=== PATIENT | female | born 1955 | race African-American/Black ===

== ENCOUNTER 2016-11-28 20:10 | Emergency (ER) | payer OTHER ==
[~2016-11-28] VITALS: Ht 167.6 cm; Wt 90.7 kg
[2016-11-28] MEDS ORDERED: CYCLOBENZAPRINE 10 MG TABLET. PO ONE (22:00)
[2016-11-28] MEDS ORDERED: NAPROXEN 250 MG TABLET PO ONE (22:00)
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
[2016-11-28 22:09] LABS: BILIRUBIN,URINE NEGATIVE (NEG); GLUCOSE,URINE >=1000 mg/dL (NEG); NITRITE,URINE NEGATIVE (NEG); PH,URINE 6.5; PROTEIN,URINE 30 mg/dL (NEG-TRACE)
[2016-11-28 22:15] LABS: BACTERIA,URINE FEW /HPF (0-FEW); RBC,URINE OCC /HPF (0-2); SQUAMOUS EPITHELIAL CELL,UR MOD /LPF; WBC,URINE OCC /HPF (0-4)
[2016-11-28 22:16] LABS: YEAST,URINE PRESENT /HPF
[2016-11-29] MEDS ORDERED: CYCL10TA2 PO (00:04)
[2016-11-29] MEDS ORDERED: NAPR250T2 PO (00:04)
[2016-11-29 00:05] VITALS: BP 154/78
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
== END 2016-11-29 00:34 | disposition home or self-care (01) ==
LOC: ER 20:10
DX: R07.89 Other chest pain (principal); M54.89 Other dorsalgia; M79.605 Pain in left leg; M79.604 Pain in right leg; R10.9 Unspecified abdominal pain; I10 Essential (primary) hypertension; E11.9 Type 2 diabetes mellitus without complications; Z88.1 Allergy status to other antibiotic agents; V49.49XA Driver injured in collision with other motor vehicles in traffic accident, initial encounter; Y93.89 Activity, other specified; Y99.8 Other external cause status; Y92.89 Other specified places as the place of occurrence of the external cause
CPT/HCPCS: 72072; 72100; 74022; 81001; 82947; 99285-25

== ENCOUNTER → 2017-05-07 | Outpatient (CLI) | payer OTHER ==
[~2017-05-07] MED LIST: CYCL10TA2 PO; NAPR250T2 PO
--- NOTE | 2017-05-07 09:48 | RAD ---
Lumbar spine radiographs 05/07/2017 at 0931 hours Indication: Chronic low back pain Comparison: Lumbar spine radiograph 11/28/2016 Technique: 3 views of the lumbosacral spine are provided. Findings: There are 5 non rib-bearing lumbar type vertebral bodies with suspected hypoplastic ribs at T12. There is minimal retrolisthesis of L5 on S1. There is disc height loss with endplate sclerosis at L5-S1. There is moderate facet arthropathy lower lumbar spine. No definite evidence for spondylolysis. No acute fracture. Atherosclerotic calcification of the abdominal aorta is present. Mild anterior marginal osteophytosis is noted at T12-L1. Impression: Mild degenerative disc disease, most prominent at L5-S1 with moderate lower lumbar facet arthropathy.
== END | disposition home or self-care (01) ==
LOC: RAD 09:00
PROVIDERS: ATTEND Neuromusculoskeletal Medicine, Sports Medicine
DX: M51.36 Other intervertebral disc degeneration, lumbar region (principal); M51.37 Other intervertebral disc degeneration, lumbosacral region; I10 Essential (primary) hypertension
CPT/HCPCS: 72100

== ENCOUNTER → 2017-06-12 | Outpatient (CLI) | payer OTHER ==
[~2017-06-12] MED LIST changes: -NAPR250T2 PO; +NAPR250T6 PO
== END | disposition home or self-care (01) ==
LOC: PF 07:24
PROVIDERS: ATTEND Neuromusculoskeletal Medicine, Sports Medicine
DX: R06.02 Shortness of breath (principal)
CPT/HCPCS: 94010; 94729

== ENCOUNTER 2018-03-31 18:50 | Emergency (ER) | payer OTHER ==
[2018-03-31 20:12] LABS: BILIRUBIN,URINE NEGATIVE (NEG); CLARITY,URINE CLEAR; COLOR,URINE YELLOW; GLUCOSE,URINE 100 mg/dL (NEG); NITRITE,URINE NEGATIVE (NEG); PH,URINE 5.5; PROTEIN,URINE 30 mg/dL (NEG-TRACE); UROBILINOGEN,URINE 0.2 mg/dL (0.2 mg/dL)
[2018-03-31 20:16] LABS: AMPHETAMINE/METHAMPHETAMINE NEG (NEG); BARBITURATES NEG (NEG); BENZODIAZEPINES NEG (NEG); CANNABINOIDS NEG (NEG); COCAINE NEG (NEG); ETHANOL, URINE NEG (NEG); METHADONE NEG (NEG); OPIATES NEG (NEG); PHENCYCLIDINE NEG (NEG)
[2018-03-31 20:22] LABS: ADD MAN DIFF? NO
[2018-03-31 20:24] LABS: BACTERIA,URINE MODERATE /HPF (0-FEW); BASO # 0.1 x10^3/uL (0.0-0.2); BASO % 1 % (0-3); EOS # 0.2 x10^3/uL (0.0-0.7); EOS % 3 % (0-3); HEMATOCRIT 35.4 % (36.0-47.0); HEMOGLOBIN 11.8 g/dL (12.0-15.5); LYMPH # 1.8 x10^3/uL (1.0-4.8); LYMPH % 34 % (24-48); MEAN CORPUSCULAR HEMOGLOBIN 27 pg (25-35); MEAN CORPUSCULAR HGB CONC 33 g/dL (31-37); MEAN CORPUSCULAR VOLUME 80 fL (79-100); MONO # 0.4 x10^3/uL (0.0-1.1); MONO % 8 % (0-9); NEUT # 2.9 x10^3uL (1.8-7.7); NEUT % 54 % (31-73); PLATELET COUNT 336 x10^3/uL (140-400); RBC,URINE 0 /HPF (0-2); RED CELL DISTRIBUTION WIDTH 14.3 % (11.5-14.5); SQUAMOUS EPITHELIAL CELL,UR MOD /LPF; WHITE BLOOD COUNT 5.3 x10^3/uL (4.0-11.0)
[2018-03-31 20:34] LABS: ANION GAP 9 (6-14); BLOOD UREA NITROGEN 18 mg/dL (7-20); BUN/CREATININE RATIO 20 (6-20); CALCIUM 8.5 mg/dL (8.5-10.1); CARBON DIOXIDE 26 mmol/L (21-32); CHLORIDE 101 mmol/L (98-107); CREATININE 0.9 mg/dL (0.6-1.0); GLUCOSE 253 mg/dL (70-99); POTASSIUM 3.4 mmol/L (3.5-5.1); SODIUM 136 mmol/L (136-145)
[2018-03-31 20:35] LABS: ETHANOL < 10 mg/dL (0-10)
[2018-03-31 20:40] LABS: ALBUMIN 3.3 g/dL (3.4-5.0); ALBUMIN/GLOBULIN RATIO 0.8 (1.0-1.7); ALK PHOS 140 U/L (46-116); ALT (SGPT) 19 U/L (14-59); AST (SGOT) 12 U/L (15-37); LIPASE 84 U/L (73-393); TOTAL BILIRUBIN 0.3 mg/dL (0.2-1.0); TOTAL PROTEIN 7.6 g/dL (6.4-8.2)
[2018-03-31] MEDS: KETOROLAC 30 MG/ML INJ. IV (20:48)
[2018-03-31] MEDS: IOHEXOL 300 MG/ML 100ML VIAL. IV (20:54)
== END 2018-03-31 23:20 | disposition home or self-care (01) ==
LOC: ER 18:50
DX: K43.9 Ventral hernia without obstruction or gangrene (principal); M54.5 Low back pain; R51 Headache; E11.65 Type 2 diabetes mellitus with hyperglycemia; M79.645 Pain in left finger(s); K21.9 Gastro-esophageal reflux disease without esophagitis; I10 Essential (primary) hypertension; Z90.49 Acquired absence of other specified parts of digestive tract; Z88.1 Allergy status to other antibiotic agents
CPT/HCPCS: 36415; 73130; 74177; 80053; 80307; 81001; 83690; 85025; 87086; 96374; 99285-25; G0480; J1885; Q9967

== ENCOUNTER 2018-10-16 07:08 | Outpatient (CLI) | payer OTHER ==
[~2018-10-16] VITALS: Ht 170.2 cm; Wt 90.7 kg
[~2018-10-16 07:08] MED LIST changes: +AMLO10TA6 PO; +CALC500T54 PO; +DICL100G18 TP; +DICL50TA4 PO; +DOCU-109 PO; +LORA10TA3 PO; +METF500T16 PO; +OMEP20CA9 PO; +OXYC1TAB7 PO; +TRAM50TA PO
[2018-10-16] MEDS ORDERED: GLIP10TA13 PO (07:32)
[2018-10-16 07:43] LABS: BASO # 0.1 x10^3/uL (0.0-0.2); BASO % 1 % (0-3); EOS # 0.2 x10^3/uL (0.0-0.7); EOS % 3 % (0-3); HEMATOCRIT 32.2 % (36.0-47.0); HEMOGLOBIN 9.8 g/dL (12.0-15.5); LYMPH # 1.7 x10^3/uL (1.0-4.8); LYMPH % 33 % (24-48); MEAN CORPUSCULAR HEMOGLOBIN 22 pg (25-35); MEAN CORPUSCULAR HGB CONC 31 g/dL (31-37); MEAN CORPUSCULAR VOLUME 73 fL (79-100); MONO # 0.4 x10^3/uL (0.0-1.1); MONO % 7 % (0-9); NEUT # 2.9 x10^3uL (1.8-7.7); NEUT % 55 % (31-73); PLATELET COUNT 397 x10^3/uL (140-400); RED BLOOD COUNT 4.39 x10^6/uL (3.50-5.40); RED CELL DISTRIBUTION WIDTH 16.4 % (11.5-14.5); WHITE BLOOD COUNT 5.2 x10^3/uL (4.0-11.0)
[2018-10-16 07:52] LABS: CALCIUM 9.5 mg/dL (8.5-10.1); CREATININE 0.8 mg/dL (0.6-1.0); GFR 87.9; POTASSIUM 3.7 mmol/L (3.5-5.1)
[2018-10-16 07:54] VITALS: BP 131/68
[2018-10-16 07:55] LABS: PROTHROMBIN TIME PATIENT 13.8 SEC (11.7-14.0)
[2018-10-16 07:58] LABS: ALBUMIN 3.1 g/dL (3.4-5.0); ALBUMIN/GLOBULIN RATIO 0.6 (1.0-1.7); TOTAL BILIRUBIN 0.3 mg/dL (0.2-1.0); TOTAL PROTEIN 8.1 g/dL (6.4-8.2)
[2018-10-16] MEDS ORDERED: LIDOCAINE WITH 8.4% SOD BICARB 3 ML DISP.SYRIN. ONE (08:38)
[2018-10-16 08:48] VITALS: BP 164/81
[2018-10-16 08:58] VITALS: BP 172/82
[2018-10-16] MEDS ORDERED: LIDOCAINE WITH 8.4% SOD BICARB 3 ML DISP.SYRIN. IJ ONE (09:00)
[2018-10-16 09:30] VITALS: BP 157/77
[2018-10-16 09:35] LABS: PLT ESTIMATE ADEQUATE (ADEQUATE)
[2018-10-16 09:36] LABS: MICROCYTOSIS PRESENT
[2018-10-16 09:45] VITALS: BP 153/78
[2018-10-16 10:45] VITALS: BP 176/81
--- NOTE | 2018-10-16 11:05 | NUR ---
Discharge Note: RADHA PENA Discharge instructions and discharge home medications reviewed with Patient and a copy given. All questions have been answered and understanding verbalized. Education provided including site care, s/s requiring further attention, follow up, s/s of infection, and information r/t draining and flushing of drain. Pt demonstrated draining and flushing back to RN x2 times. Friend present and states understanding as well. Phone number reviewed to call for more information. The following instructions and handouts were given: Post op drain Discontinued lines and drains: peripheral IV Patient discharged to home via private vehicle with friend.
--- NOTE | 2018-10-16 16:19 | RAD ---
Ultrasound-guided placement, subcutaneous anterior abdomina fluid collection 10/16/2018 Discussion: The risks and benefits of the procedure were discussed the patient. Informed consent was obtained. Timeout procedure was performed. Ultrasound evaluation was performed demonstrating a multiloculated complex collection in subcutaneous tissues of the anterior abdomen. The appearance is consistent with prior CT imaging. Once an appropriate site for skin entry was selected the anterior abdomen was prepped and draped using sterile barrier technique. 1% lidocaine was administered for local anesthesia. Under direct ultrasound guidance a 5 Martiniquais sheath needle was advanced into the collection. Chronic appearing hematoma was noted aspirated. A guidewire was advanced into the fluid collection over which following dilatation a 12 Martiniquais drainage catheter was placed. 1.2 L of chronic appearing hematoma was aspirated. Some residual fluid and multifocal septation remains throughout the previously occupied space. The catheter was connected to bulb suction drainage. Sterile dressings were applied. Impression: Placement of a 12 Martiniquais drain into complex collection in the subcutaneous abdomen pacheco 1.2 L of chronic appearing hematoma. Patient was instructed on drain catheter care, with a follow-up appointment being made with the referring surgeon
== END 2018-10-16 11:00 | disposition home or self-care (01) ==
LOC: INTRAD 07:08
PROVIDERS: ATTEND Surgery
DX: L76.32 Postprocedural hematoma of skin and subcutaneous tissue following other procedure (principal); I10 Essential (primary) hypertension; Z88.1 Allergy status to other antibiotic agents; Z88.8 Allergy status to other drugs, medicaments and biological substances; E11.9 Type 2 diabetes mellitus without complications; Z79.84 Long term (current) use of oral hypoglycemic drugs; Z79.899 Other long term (current) drug therapy; Z79.01 Long term (current) use of anticoagulants; Y83.8 Other surgical procedures as the cause of abnormal reaction of the patient, or of later complication, without mention of misadventure at the time of the procedure
CPT/HCPCS: 10030; 36415; 80053; 85025; 85610; 87071; 87075; A4215; C1729; C1892; C1894